=== PATIENT | female | born 2000 | race Asian ===

== ENCOUNTER → 2024-06-21 08:31 | Outpatient (CLI) | payer OTHER, SELFPAY ==
[2024-06-21 09:52] LABS: Hematocrit 34.6 % (36-46); Hemoglobin 11.7 g/dL (12.0-16.0)
[2024-06-21 10:03] LABS: GTT (PREG) 1 Hour PP 50gm Dose 115 mg/dL (76-139)
== END ==
PROVIDERS: PCP Nurse Practitioner Family; Referring Provider Student in an Organized Health Care Education/Training Program; Visit Provider Student in an Organized Health Care Education/Training Program
DX: Z34.00 Encounter for supervision of normal first pregnancy, unspecified trimester (principal); Z13.0 Encounter for screening for diseases of the blood and blood-forming organs and certain disorders involving the immune mechanism; Z13.1 Encounter for screening for diabetes mellitus
CPT/HCPCS: 36415; 82950; 85014; 85018; 86850; 86900; 86901

== ENCOUNTER → 2024-08-07 13:43 | Outpatient (CLI) | payer OTHER, SELFPAY ==
--- NOTE | 2024-08-07 13:45 | DI.US.S_ITS ---
PROCEDURE: US OB LIMITED INDICATIONS: SIZE LESS THAN DATES OUTSIDE/PRIOR DATING DATA: Last menstrual period (LMP): 12/20/2023. LMP-based estimated date of delivery (PAT): 09/25/2024. First dating scan (date and location): 01/30/2024. Estimated date of delivery (PAT) from first dating scan: Unknown. The calculations are made using the clinical PAT of 09/25/2024. TECHNIQUE: Real-time scanning was performed of the fetus, with image documentation and biometric measurements. COMPARISON: [facility], US, US OB >= 14 WEEKS FETUS, 06/25/2024, 15:01. FINDINGS: General: A single living intrauterine gestation is present. Presentation: Vertex. Placenta: Placental position is anterior , without previa. Amniotic fluid index: 16.3 cm, normal range is 5-24 cm. Single deepest vertical pocket is 5.7 cm. heart rate: 125 beats per minute. Maternal cervical canal: Not well seen cm long. biometrics: Biparietal diameter: 8.2 cm 33 weeks 0 days Head circumference: 28.4 cm 31 weeks 1 day Abdominal circumference: 23.7 cm 20 weeks 0 days Femur length: 5.5 cm 29 weeks 0 days Clinically estimated gestational age: 33 weeks 0 days Composite gestational age from present scan: 30 weeks 2 days Estimated weight and percentile: 1311 g less than 2nd percentile Other: Not applicable. IMPRESSION: Single live intrauterine with gestational age today of 30 weeks 2 days, compared to clinically estimated age of 33 weeks 0 days. It is also noted weight is less than 2nd percentile. Overall appearance is most concerning for intrauterine growth restriction this is decreased from the 26th percentile on prior exam. Clinical and ultrasound follow-up is recommended. We strive to produce accurate, complete, and clear reports of imaging services. To assist us in improving patient care, this report was composed using standard report templates and voice recognition software. Therefore, it may contain abnormal punctuation, insertions and/or omissions. Occasional wrong-word or sound-alike substitutions may occur. Though we review the report and make efforts to correct it, we do recommend that the report be read carefully in proper context to recognize any text inaccuracies. Dictated by: Francy Green M.D. on 08/07/2024 at 20:10 Approved by: Francy Green M.D. on 08/07/2024 at 20:14
== END ==
LOC: US 13:45
PROVIDERS: PCP Nurse Practitioner Family; Referring Provider Student in an Organized Health Care Education/Training Program; Visit Provider Student in an Organized Health Care Education/Training Program
DX: O26.843 Uterine size-date discrepancy, third trimester (principal); Z3A.30 30 weeks gestation of pregnancy
CPT/HCPCS: 76815; 76820

== ENCOUNTER → 2024-08-09 15:14 | Outpatient (CLI) | payer OTHER, SELFPAY ==
--- NOTE | 2024-08-09 15:16 | DI.US.S_ITS ---
PROCEDURE: US OB LIMITED INDICATIONS: growth restriction, UA dopplers BPP OUTSIDE/PRIOR DATING DATA: Last menstrual period (LMP): 12/20/2023. LMP-based estimated date of delivery (PAT): 09/25/2024. First dating scan (date and location): 01/30/2024. Estimated date of delivery (PAT) from first dating scan: Unknown. The calculations are made using the clinical PAT of 09/25/2024. TECHNIQUE: Real-time scanning was performed of the fetus for biophysical profile, with image documentation. Color and pulse Doppler interrogation was also performed of the umbilical artery near its insertion into the placenta. Endovaginal scanning: Not performed COMPARISON: [facility], OB LIMITED, 08/07/2024, 14:00. FINDINGS: General: A single living intrauterine gestation is present. Presentation: Vertex. Placenta: Placental position is anterior , without previa. Amniotic fluid index: 18.1 cm, normal range is 5-24 cm. Single deepest vertical pocket is 4.9 cm. heart rate: 145 beats per minute. Maternal cervical canal: 3.2 cm long. Normal lower limit is 2.5 cm. Clinically estimated gestational age: 33 weeks, 2 days Biophysical profile: Tone: 2 points. Movement: 2 points. Respiration: 2 points. Largest pocket of fluid: 2 points. Umbilical artery Doppler: 1.8, 1.8, 2.3 IMPRESSION: 1. Single live intrauterine consistent with 33 weeks and 2 days. 2. Normal biophysical profile and umbilical artery Dopplers. We strive to produce accurate, complete, and clear reports of imaging services. To assist us in improving patient care, this report was composed using standard report templates and voice recognition software. Therefore, it may contain abnormal punctuation, insertions and/or omissions. Occasional wrong-word or sound-alike substitutions may occur. Though we review the report and make efforts to correct it, we do recommend that the report be read carefully in proper context to recognize any text inaccuracies. Dictated by: Issa Aleman M.D. on 08/09/2024 at 17:00 Approved by: Issa Aleman M.D. on 08/09/2024 at 17:02
== END ==
PROVIDERS: PCP Nurse Practitioner Family; Referring Provider Student in an Organized Health Care Education/Training Program; Visit Provider Student in an Organized Health Care Education/Training Program
DX: O26.843 Uterine size-date discrepancy, third trimester (principal); Z3A.33 33 weeks gestation of pregnancy
CPT/HCPCS: 76815; 76819; 93975

== ENCOUNTER 2024-08-13 08:46 | Outpatient (CLI) | payer OTHER, SELFPAY ==
--- NOTE | 2024-08-13 09:26 | P.TNLD_ITS ---
Visit Information Visit Information Date of evaluation: 08/13/24 Primary OB Provider: Hortencia oBurgeois Reason for Evaluation: Yes non-stress test Vital Signs Vital Signs: reviewed in OBIX, within normal parameters PFSH Medical History (Updated 08/13/24 @ 09:27 by Hortencia Bourgeois DO) Acne Migraines Chronic headache Surgical History No pertinent past surgical history Family History (Updated 06/07/24 @ 19:55 by Lisa Peng) Father Diabetes mellitus Dementia History of heart disease Stroke Mother Hypertension Aunt Cervical cancer Aunt Lung cancer Smoker Social History marital status: unmarried,single number of children: 0 household members: none lives independently: Yes caregiver/support person: No housing: apartment pets and animals: No education level: high school occupational status: employed (active duty, cook) current occupational exposures/hazards: No special tootie needs: No travel history: recent (recent move from [facility]) seatbelt use: always water heater temp set < 120 deg: Yes working smoke detector in home: Yes fire extinguisher in home: No carbon monox detector in home: Yes firearms in home: No do you feel safe at home: Yes Smoking Status: Never smoker second hand exposure: No alcohol intake: former (binge drinking on weekends when not ) during the past year weight has: increased > 10 lbs well-balanced diet: about half the time daily servings fruits/ve-1 (1-2) caffeine: No (occasional coffee) Type(s) of exercise: none Objective Labs Labs: UA collected Evaluation Evaluation Baseline heart rate: 140 Variability: Moderate (11-25) monitor accelerations: Present Monitor Decelerations: Absent Contraction Frequency (minutes): 4 Uterine Contraction Intensity: Mild Category of Tracing: Reactive Diagnosis, Plan/Disposition Final Diagnosis (1) growth restriction antepartum: Status: Acute Plan/Disposition Plan: 24yo at 33+6wks with newly diagnosed FGR (EFW 2%ile), here for twice weekly NST. Reported some low back pain, with some contractions seen on the tocometer during her NST today. She was observed and given PO hydration, with no worsening of her symptoms. Cervical length 4 days ago was normal. UA collected today. Reactive NST today. -patient was given strict return precautions regarding symptoms of labor, as well as decreased movement -patient to follow-up later this week for 2nd NST and UA dopplers OB Disposition: home
[2024-08-13 09:47] LABS: Appearance Urine UA CLEAR; Bilirubin Urine UA NEGATIVE (NEGATIVE); Color Urine UA YELLOW; Glucose Urine UA NEGATIVE (Negative); Ketones Urine UA NEGATIVE (NEGATIVE); Leukocyte Esterase Urine UA 1+ (NEGATIVE); Nitrite Urine UA NEGATIVE (Negative); Occult Blood Urine UA NEGATIVE (Negative); Protein Urine UA NEGATIVE (Negative); Specific Gravity Urine UA 1.015 (1.000-1.035); Urobilinogen Urine UA 0.2 E.U./dL (0.2)
[2024-08-13 09:50] LABS: Urine Volume 10mL (spun)
[2024-08-13 09:55] LABS: Bacteria Urine None Seen; Culture Indicated Urine Specimen Cultured; RBC Urine None Seen (0-5/HPF); Squamous Epithelial Cell Urine 10-30 /HPF (0-5/HPF); WBC Urine 1-5/HPF (0-5/HPF)
== END 2024-08-13 10:15 | disposition home or self-care (01) ==
LOC: LABOR 09:53 → OB 12:26
PROVIDERS: PCP Nurse Practitioner Family; Referring Provider Student in an Organized Health Care Education/Training Program; Visit Provider Student in an Organized Health Care Education/Training Program
DX: O36.5930 Maternal care for other known or suspected poor fetal growth, third trimester, not applicable or unspecified (principal); Z3A.33 33 weeks gestation of pregnancy
CPT/HCPCS: 59025; 81001; 87086; G0378; G0379

== ENCOUNTER 2024-08-20 11:29 | Outpatient (CLI) | payer OTHER, SELFPAY ==
--- NOTE | 2024-08-20 12:07 | P.TNLD_ITS ---
Visit Information Visit Information Date of evaluation: 08/20/24 Primary OB Provider: Hortencia Bourgeois Reason for Evaluation: Yes non-stress test Vital Signs Vital Signs: reviewed in OBIX, within normal parameters PFSH Medical History (Updated 08/13/24 @ 09:27 by Hortencia Bourgeois DO) Acne Migraines Chronic headache Surgical History No pertinent past surgical history Family History (Updated 06/07/24 @ 19:55 by Lisa Peng) Father Diabetes mellitus Dementia History of heart disease Stroke Mother Hypertension Aunt Cervical cancer Aunt Lung cancer Smoker Social History marital status: unmarried,single number of children: 0 household members: none lives independently: Yes caregiver/support person: No housing: apartment pets and animals: No education level: high school occupational status: employed (active duty, cook) current occupational exposures/hazards: No special tootie needs: No travel history: recent (recent move from [facility]) seatbelt use: always water heater temp set < 120 deg: Yes working smoke detector in home: Yes fire extinguisher in home: No carbon monox detector in home: Yes firearms in home: No do you feel safe at home: Yes Smoking Status: Never smoker second hand exposure: No alcohol intake: former (binge drinking on weekends when not ) during the past year weight has: increased > 10 lbs well-balanced diet: about half the time daily servings fruits/ve-1 (1-2) caffeine: No (occasional coffee) Type(s) of exercise: none Evaluation Evaluation Baseline heart rate: 150 Variability: Moderate (11-25) monitor accelerations: Present Monitor Decelerations: Absent Category of Tracing: Reactive Diagnosis, Plan/Disposition Final Diagnosis (1) growth restriction antepartum: Status: Acute Plan/Disposition Plan: Follow-up for visit today, MFM appointment tomorrow. OB Disposition: home
== END 2024-08-20 12:19 | disposition home or self-care (01) ==
LOC: LABOR 12:04 → OB 12:27
PROVIDERS: PCP Nurse Practitioner Family; Referring Provider Student in an Organized Health Care Education/Training Program; Visit Provider Student in an Organized Health Care Education/Training Program
DX: O36.5930 Maternal care for other known or suspected poor fetal growth, third trimester, not applicable or unspecified (principal); Z3A.34 34 weeks gestation of pregnancy
CPT/HCPCS: 59025; G0378; G0379

== ENCOUNTER 2024-08-24 13:33 | Outpatient (CLI) | payer OTHER, SELFPAY ==
--- NOTE | 2024-08-24 14:10 | PM.OBTRLD ---
Visit Information Visit Information Date of evaluation: 08/24/24 On-call OB Provider: Hortencia Bourgeois Reason for Evaluation: Yes non-stress test Vital Signs Vital Signs: Reviewed in obix, within normal parameters PFSH Medical History (Updated 08/24/24 @ 17:31 by Hortencia Bourgeois DO) Acne Migraines Chronic headache Surgical History No pertinent past surgical history Family History (Updated 06/07/24 @ 19:55 by Lisa Peng) Father Diabetes mellitus Dementia History of heart disease Stroke Mother Hypertension Aunt Cervical cancer Aunt Lung cancer Smoker Social History marital status: unmarried,single number of children: 0 household members: none lives independently: Yes caregiver/support person: No housing: apartment pets and animals: No education level: high school occupational status: employed (active duty, cook) current occupational exposures/hazards: No special tootie needs: No travel history: recent (recent move from [facility]) seatbelt use: always water heater temp set < 120 deg: Yes working smoke detector in home: Yes fire extinguisher in home: No carbon monox detector in home: Yes firearms in home: No do you feel safe at home: Yes Smoking Status: Never smoker second hand exposure: No alcohol intake: former (binge drinking on weekends when not ) during the past year weight has: increased > 10 lbs well-balanced diet: about half the time daily servings fruits/ve-1 (1-2) caffeine: No (occasional coffee) Type(s) of exercise: none Evaluation Evaluation Baseline heart rate: 140 Variability: Moderate (11-25) monitor accelerations: Present Monitor Decelerations: Absent Category of Tracing: Reactive Diagnosis, Plan/Disposition Final Diagnosis (1) growth restriction antepartum: Status: Acute (2) 35 weeks gestation of : Status: Acute Plan/Disposition Plan: Continue twice weekly testing with UA Dopplers with MFM. OB Disposition: home
[2024-08-24 16:43] LABS: Strep Grp B PCR NEG for Grp B Strep
== END 2024-08-24 14:16 | disposition home or self-care (01) ==
LOC: OB 14:40
PROVIDERS: PCP Nurse Practitioner Family; Referring Provider Student in an Organized Health Care Education/Training Program; Visit Provider Student in an Organized Health Care Education/Training Program
DX: O36.5930 Maternal care for other known or suspected poor fetal growth, third trimester, not applicable or unspecified (principal); Z3A.35 35 weeks gestation of pregnancy
CPT/HCPCS: 59025; 87081; 87653; G0378; G0379

== ENCOUNTER 2024-08-27 10:21 | Outpatient (CLI) | payer OTHER, SELFPAY ==
--- NOTE | 2024-08-27 12:14 | P.TNLD_ITS ---
Visit Information Visit Information Date of evaluation: 08/27/24 Primary OB Provider: Hortencia Bourgeois Reason for Evaluation: Yes non-stress test PFSH Medical History (Updated 08/24/24 @ 17:31 by Hortencia Bourgeois DO) Acne Migraines Chronic headache Surgical History No pertinent past surgical history Family History (Updated 06/07/24 @ 19:55 by Lisa Peng) Father Diabetes mellitus Dementia History of heart disease Stroke Mother Hypertension Aunt Cervical cancer Aunt Lung cancer Smoker Social History marital status: unmarried,single number of children: 0 household members: none lives independently: Yes caregiver/support person: No housing: apartment pets and animals: No education level: high school occupational status: employed (active duty, cook) current occupational exposures/hazards: No special tootie needs: No travel history: recent (recent move from [facility]) seatbelt use: always water heater temp set < 120 deg: Yes working smoke detector in home: Yes fire extinguisher in home: No carbon monox detector in home: Yes firearms in home: No do you feel safe at home: Yes Smoking Status: Never smoker second hand exposure: No alcohol intake: former (binge drinking on weekends when not ) during the past year weight has: increased > 10 lbs well-balanced diet: about half the time daily servings fruits/ve-1 (1-2) caffeine: No (occasional coffee) Type(s) of exercise: none Evaluation Evaluation Baseline heart rate: 140 Variability: Moderate (11-25) monitor accelerations: Present Monitor Decelerations: Absent Category of Tracing: Reactive Diagnosis, Plan/Disposition Final Diagnosis (1) growth restriction antepartum: Status: Acute (2) 35 weeks gestation of : Status: Acute Plan/Disposition Plan: Follow up with MFM tomorrow for Doppler studies. Follow up later this week for 2nd NST. -plan for induction next week at 37+ 0 weeks OB Disposition: home
== END 2024-08-27 11:00 | disposition home or self-care (01) ==
LOC: OB 14:43
PROVIDERS: PCP Nurse Practitioner Family; Referring Provider Student in an Organized Health Care Education/Training Program; Visit Provider Student in an Organized Health Care Education/Training Program
DX: O36.5930 Maternal care for other known or suspected poor fetal growth, third trimester, not applicable or unspecified (principal); Z3A.35 35 weeks gestation of pregnancy
CPT/HCPCS: 59025; G0378; G0379

== ENCOUNTER 2024-08-31 13:46 | Outpatient (CLI) | payer OTHER, SELFPAY ==
--- NOTE | 2024-08-31 14:22 | PM.OBTRLD ---
Visit Information Visit Information Date of evaluation: 08/31/24 Primary OB Provider: Hortencia Bourgeois Reason for Evaluation: Yes non-stress test Vital Signs Vital Signs: reviewed in OBIX, within normal parameters PFSH Medical History (Updated 08/24/24 @ 17:31 by Hortencia Bourgeois DO) Acne Migraines Chronic headache Surgical History No pertinent past surgical history Family History (Updated 06/07/24 @ 19:55 by Lisa Peng) Father Diabetes mellitus Dementia History of heart disease Stroke Mother Hypertension Aunt Cervical cancer Aunt Lung cancer Smoker Social History marital status: unmarried,single number of children: 0 household members: none lives independently: Yes caregiver/support person: No housing: apartment pets and animals: No education level: high school occupational status: employed (active duty, cook) current occupational exposures/hazards: No special tootie needs: No travel history: recent (recent move from [facility]) seatbelt use: always water heater temp set < 120 deg: Yes working smoke detector in home: Yes fire extinguisher in home: No carbon monox detector in home: Yes firearms in home: No do you feel safe at home: Yes Smoking Status: Never smoker second hand exposure: No alcohol intake: former (binge drinking on weekends when not ) during the past year weight has: increased > 10 lbs well-balanced diet: about half the time daily servings fruits/ve-1 (1-2) caffeine: No (occasional coffee) Type(s) of exercise: none Evaluation Evaluation Baseline heart rate: 140 Variability: Moderate (11-25) monitor accelerations: Present Monitor Decelerations: Absent Category of Tracing: Reactive Diagnosis, Plan/Disposition Final Diagnosis (1) growth restriction antepartum: Status: Acute Plan/Disposition OB Disposition: home
== END 2024-08-31 14:25 | disposition home or self-care (01) ==
LOC: LABOR 13:57 → OB 15:01
PROVIDERS: PCP Nurse Practitioner Family; Referring Provider Student in an Organized Health Care Education/Training Program; Visit Provider Student in an Organized Health Care Education/Training Program
DX: O36.5930 Maternal care for other known or suspected poor fetal growth, third trimester, not applicable or unspecified (principal); Z3A.36 36 weeks gestation of pregnancy
CPT/HCPCS: 59025; G0378; G0379

== ENCOUNTER 2024-09-03 19:21 | Inpatient (IN) | payer OTHER, SELFPAY ==
[2024-09-03 20:04] LABS: Add Manual Diff / Slide Review NO; Basophils Absolute Auto 100 /uL (0-100); Basophils Percent Auto 0.8 % (0-2); Eosinophils Absolute Auto 200 /uL (0-450); Eosinophils Percent Auto 1.5 % (2-4); Hematocrit 38.3 % (36-46); Hemoglobin 13.1 g/dL (12.0-16.0); Lymphocytes Absolute Auto 1800 /uL (1100-4500); Mean Corpuscular HGB Conc 34.1 % (30-36); Mean Corpuscular Hemoglobin 32.8 PG (26-34); Mean Corpuscular Volume 96.1 fL (80-100); Monocytes Absolute Auto 800 /uL (0-900); Monocytes Percent Auto 7.7 % (3-14); Neutrophils Absolute Auto 7700 /uL (1500-7000); Platelet Count 252 X10^3/uL (150-400); Red Blood Cell Count 3.99 X10^6/uL (4.0-5.2); Red Cell Distribution Width 13.3 % (11.6-14.8); White Blood Cell Count 10.6 X10^3/uL (4.5-11.0)
[2024-09-03] MEDS: DINOPROSTONE VAG (CERVIDIL) 10 MG VAG (20:53)
--- NOTE | 2024-09-04 07:45 | PM.OBHP.IH.1 ---
OB HPI Date/Time Date of admission: 09/03/24 Date Patient Seen: 09/04/24 Time Patient Seen: 07:30 History of Present Condition Chief complaint: Induction PAT Calculator Estimated Delivery Date Method Current WG Current Estimate 09/25/24 LMP (Certain) 37w 0d Other Estimates 09/22/24 Ultrasound #1 37w 3d care: good care Dating criteria OB: LMP confirmed by 1st trimester US Ultrasounds: normal mid trimester US Obstetrical complications: growth restriction Narrative: Ultrasound Ultrasound Details:: 04/30/24 18w6d anatomy grossly normal excepting echogenic L intraventricular focus; EFW 243g, 25.7%ile; MVP 4.6cm; placenta anterior w/ central cord insertion, 3v cord. FHR 149 MFM US 08/16/24: EFW 1%ile (AC, [place], HL all <1%ile), normal UA dopplers, vertex presentation Specific Issues/Plans G1 [x] cfDNA- low risk XX; [x] CF/SMA- neg FGR (2nd %ile) at 33wks: [x ] MFM referral for confirmation; [ x] UA dopplers weekly (at [facility]);? 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 Indications Indication for induction OB: intra-uterine growth restriction Preadmission Labs Last OB Lab Results: Blood Type AB Positive 09/03/24 19:46 Antibody Screen Negative 09/03/24 19:46 Hct 38.3 % (36-46) 09/03/24 19:46 Hgb 13.1 g/dL (12.0-16.0) 09/03/24 19:46 Glucose 1 Hr 50 gm 115 mg/dL (76-139) 06/21/24 09:40 Group B Strep (PCR) Neg for grp b strep 08/24/24 13:56 Glucose Tolerance Testin hr (negative) -: Chlamydia screen: negative, Gonorrhea screen: negative and Urine: negative -: PAP smear: Normal Genetic Screens: Cell-free DNA: Normal External Labs -: Urine: negative Evaluation Evaluation Baseline heart rate: 140 Variability: Moderate (11-25) monitor accelerations: Present Monitor Decelerations: Absent Status: Category l Dilation (cm): 1 Effacement (%): 50 station: -3 Position of cervix: mid Consistency: soft PFSH Medical History (Updated 08/24/24 @ 17:31 by Hortencia Bourgeois DO) Acne Migraines Chronic headache Surgical History No pertinent past surgical history Family History (Updated 06/07/24 @ 19:55 by Lisa Peng) Father Diabetes mellitus Dementia History of heart disease Stroke Mother Hypertension Aunt Cervical cancer Aunt Lung cancer Smoker Social History marital status: unmarried,single number of children: 0 household members: none lives independently: Yes caregiver/support person: No housing: apartment pets and animals: No education level: high school occupational status: employed (active duty, cook) current occupational exposures/hazards: No special tootie needs: No travel history: recent (recent move from [facility]) seatbelt use: always water heater temp set < 120 deg: Yes working smoke detector in home: Yes fire extinguisher in home: No carbon monox detector in home: Yes firearms in home: No do you feel safe at home: Yes Smoking Status: Former smoker second hand exposure: No alcohol intake: former (binge drinking on weekends when not ) during the past year weight has: increased > 10 lbs well-balanced diet: about half the time daily servings fruits/ve-1 (1-2) caffeine: No (occasional coffee) Type(s) of exercise: none Meds Home Medications and Allergies Home Medications Medication Instructions Recorded Confirmed Type breast pump #1 ea 07/13/24 08/27/24 Rx vit no.95-ferrous 1 tab PO DAILY #90 tabs 07/23/24 08/27/24 Rx fumarate 28 mg-folic acid 800 mcg tablet Allergies Allergy/AdvReac Type Severity Reaction Status Date / Time No Known Drug Allergies Allergy Unverified 08/27/24 10:07 Review of Systems Review of Systems ROS: Yes All systems reviewed with the patient and are negative except as otherwise documented OB Exam Vital signs Blood Pressure: 122/73 Pulse Rate: 82 Respiratory Rate: 16 Temperature: 97.2 F HENMT Head: normal to inspection and normocephalic Eyes General: appearance normal, both eyes and all related structures Resp Effort & Inspection: normal respiratory effort and able to speak in complete sentences Extremities Lower extremity: Yes normal to inspection GI Inspection: normal to inspection Other: gravid, nontender, nondistended Objective Labs 09/03/24 19:46 Labs: Laboratory Results - last 24 hr 09/03/24 19:46 WBC 10.6 RBC 3.99 L Hgb 13.1 Hct 38.3 MCV 96.1 MCH 32.8 MCHC 34.1 RDW 13.3 Plt Count 252 Neut % (Auto) 73.0 Lymph % (Auto) 17.0 L [place] % (Auto) 7.7 Eos % (Auto) 1.5 L Baso % (Auto) 0.8 Neut # (Auto) 7700 H Lymph # (Auto) 1800 [place] # (Auto) 800 Eos # (Auto) 200 Baso # (Auto) 100 Blood Type AB Positive Antibody Screen Negative Assessment and Plan Assessment and Plan Assessment and Plan narrative: 24yo at 37+0wks admitted for induction of labor due to growth restriction. -CBC, T&S on admission -continuous EFM -epidural PRN -GBS neg, ppx not indicated -PPH risk low -VTE risk low, SCDs with epidural -anticipate L&D Counseling: Common procedures and interventions related to the management of were explained to the patient, including assistance at vaginal delivery with episiotomy, vacuum, or forceps, use of medications to stop premature labor or induce labor, and assessment including auscultation (listening to the heart), use of electronic monitoring (external and / or internal), and use of scalp electrode and/or intrauterine pressure catheter.? It was also explained that approximately 20-30% of mothers have a need for delivery during their labor course. It was explained to the patient that , labor and delivery are ordinarily normal physiological events and can be expected to provide a healthy outcome for mother and baby in the majority of cases. However, there are complications that may arise during , labor, and delivery, such as: hemorrhage requiring administration of blood and/or blood products, surgical intervention, possibly even hysterectomy for life-saving purposes; possibility of infection requiring antibiotics, prolonged hospital stay, and rarely surgical intervention; possibility of blood clots;? possibility of retained products of conception requiring surgical intervention;? possibility of serious tears or injury to the vagina, cervix, perineum, or rectum;? possibility of injury to abdominal structures if delivery is required;? and rarely maternal or may occur. Time-Based Coding :: [30min] spent with patient and on the chart (including review of chart, obtaining history, exam, reviewing outside data, placing orders, documenting exam and treatment plan, and counseling patient) on [09/04/24].
[2024-09-04 07:49] VITALS: BP 122/73; PULSE 82; RESP 16; TEMP 36.2
[2024-09-04] MEDS: miSOPROStoL 25 MCG TABLET PO ×2 (10:00→14:04)
--- NOTE | 2024-09-04 12:00 | PM.OBPNLAB ---
Date/Time Date Patient Seen: 09/04/24 Time Patient Seen: 12:00 Pain Control Pain control: tolerating well Pelvic Exam Dilation (cm): 1 Effacement (%): 50 station: -3 Amniotic membrane status: Intact Contractions Contraction pattern: Irregular Contraction intensity: Mild Status status: Category l Heart Rate Baseline: 145 Monitor Accelerations: Present Monitor Decelerations: Absent Monitor Variability: Moderate Assessment and Plan Assessment: induction ongoing Comments: 24yo at 37+0wks undergoing IOL for FGR. S/p cytotec 25mcg PO at 10am. Pastor bulb placed now with 60cc saline. -reassess this afternoon for continued cytotec vs. pitocin
[2024-09-04] MEDS: polyethylene glycoL 3350 17 GM POWD.PACK PO (12:16)
[2024-09-04] MEDS: LACTATED RINGERS 1,000 ML 100 ML IV ×2 (18:26→22:35)
[2024-09-04] MEDS: OXYTOCIN PREMIX 30 UNIT/500 ML PLAST..BAG IV (18:26)
--- NOTE | 2024-09-05 02:03 | PM.AN.REGBLK ---
Regional Block Pre-procedure PMH/ROS narrative: active labor PSH/Anesthesia history narrative: no pmh ASA Class: II Labs: Hct 38.3 % (36-46) 09/03/24 19:46 Plt Count 252 X10^3/uL (150-400) 09/03/24 19:46 Medications: Current Medications Generic Name Dose Route Start Last Admin Trade Name Freq PRN Reason Stop Dose Admin Calcium Carbonate 1,000 mg 09/03/24 19:23 Calcium Carbonate 500 Mg Tab PO Q2HR PRN Dyspepsia Carboprost Tromethamine 250 mcg 09/03/24 19:23 Carboprost 250 Mcg/Ml Ampul IM Q90M PRN Bleeding Oxytocin/Lactated Ringer's 30 unit in 500 mls @ 200 mls/hr 09/03/24 19:23 Oxytocin Premix IV CONT PRN Bleeding Protocol Tranexamic Acid 1,000 mg/ 100 mls @ 600 mls/hr 09/03/24 19:23 Sodium Chloride IV NOW PRN Bleeding Oxytocin/Lactated Ringer's 30 unit in 500 mls @ 2 mls/hr 09/04/24 18:15 09/04/24 18:26 Oxytocin Premix IV 2 milliunit/min TITRATE JUANITA 2 mls/hr Administration Protocol 2 MILLIUNIT/MIN Lidocaine HCl 20 ml 09/03/24 19:23 Lidocaine 1% 20 Ml INJ INTRA-OP PRN Post Delivery Methylergonovine Maleate 0.2 mg 09/03/24 19:23 Methylergonovine 0.2 Mg/Ml Vial IM NOW PRN Bleeding Methylergonovine Maleate 0.2 mg 09/03/24 19:23 Methylergonovine 0.2 Mg Tablet PO Q6HR PRN Heavy Bleeding Misoprostol 400 mcg 09/03/24 19:23 Misoprostol 200 Mcg Tablet SL NOW PRN Bleeding Misoprostol 800 mcg 09/03/24 19:23 Misoprostol 200 Mcg Tablet WI NOW PRN Bleeding Misoprostol 25 mcg 09/04/24 14:00 09/04/24 14:04 Misoprostol 25 Mcg Tablet PO 25 mcg Q4H JUANITA Administration Naloxone HCl 0.2 mg 09/03/24 19:23 Naloxone 0.4 Mg/Ml Vial IV Q2MIN PRN Opiate Reversal Ondansetron HCl 4 mg 09/03/24 19:23 Ondansetron 4 Mg/2 Ml Inj IV Q4HR PRN Nausea And Vomiting Oxytocin 10 unit 09/03/24 19:23 Oxytocin 10 Unit/Ml Vial IM NOW PRN Bleeding Allergies: Allergies Allergy/AdvReac Type Severity Reaction Status Date / Time No Known Drug Allergies Allergy Verified 09/04/24 08:32 Procedure Insertion date: 09/05/24 Insertion time: 01:49 Prep/Local: 1% lidocaine (chloraprep) Interspace: l3 l4 Needle: 18 gauge Tamratead Loss of resistance with: saline REBEKAH at (cm): 6 Catheter placed at SKIN (cm): 12 Sensory level: t10 Initial Medications TEST DOSE time: 01:50 TEST DOSE: 1.5% lidocaine with epinephrine 1:200k (mL): 3 BOLUS DOSE time: 01:55 BOLUS DOSE (mL): 5 BOLUS DOSE med: other (bupivacaine 0.0625% with fent 2 mcg/mL) Infusion INFUSION: 0.0625% bupivacaine and with fentanyl 2 mcg/mL Initial rate (mL/hr): 10 Post-procedure Anesthesia date START: 09/05/24 Anesthesia time START: 01:32
[2024-09-05 04:58] LABS: Add Manual Diff / Slide Review NO; Basophils Absolute Auto 100 /uL (0-100); Basophils Percent Auto 0.3 % (0-2); Eosinophils Absolute Auto 0 /uL (0-450); Hematocrit 32.8 % (36-46); Hemoglobin 11.3 g/dL (12.0-16.0); Lymphocytes Absolute Auto 1200 /uL (1100-4500); Lymphocytes Percent Auto 5.6 % (25-40); Mean Corpuscular HGB Conc 34.4 % (30-36); Mean Corpuscular Hemoglobin 32.9 PG (26-34); Mean Corpuscular Volume 95.5 fL (80-100); Monocytes Absolute Auto 900 /uL (0-900); Monocytes Percent Auto 4.1 % (3-14); Neutrophils Absolute Auto 19300 /uL (1500-7000); Platelet Count 203 X10^3/uL (150-400); Red Blood Cell Count 3.44 X10^6/uL (4.0-5.2); Red Cell Distribution Width 13.2 % (11.6-14.8); White Blood Cell Count 21.5 X10^3/uL (4.5-11.0)
--- NOTE | 2024-09-05 05:06 | SUR.OPER ---
Lithotomy on padded OR bed, head on pillow, arms secured on padded arm boards at <90 degrees abduction. Legs secured in padded yellow fins stirrups.
[2024-09-05 05:53] LABS: INR 1.9 (0.9-1.3); Prothrombin Time 21.2 SECONDS (9.4-12.5)
[2024-09-05 05:56] LABS: PTT Partial Thromboplastin Tim 65 SECONDS (25.1-36.5)
[2024-09-05 06:13] VITALS: BP 105/64; PULSE 100; RESP 16; TEMP 36.4; O2SAT 99
--- NOTE | 2024-09-05 06:14 | PM.OBPRVD ---
Labor & Delivery Delivery date: 09/05/24 Delivery Time: 02:49 Cervical ripening method: other (cervidil, cytotec, perales bulb) Induction method: per pitocin protocol Delivery monitor: external FHT and external uterine Route of delivery: L&D Laceration Description: Perineal - 2nd Degree, Vaginal - 2nd Degree and Labial Delivery repair: vicryl Quantitative Blood Loss: 1,060 Anesthesia Type: Epidural Complications: hemorrhage from obstetrical lacerations Narrative: The patient progressed to C/C/+2 with pitocin augmentation and epidural anesthesia. After approximately 30min of maternal pushing efforts, the delivered in OA position and restituted LOT. The anterior shoulder delivered with gentle downward pressure. The posterior shoulder and rest of body delivered with ease. The cord was doubly clamped and cut after a 30sec delay with the placed on maternal abdomen. The placenta delivered spontaneously and was intact with a 3-vessel cord. The fundus was noted to be firm with bimanual massage and pitocin. She also received 1 dose of methergine and 1 dose of TXA. Inspection of the cervix, vagina, and perineum was notable for the above lacerations. Repair was performed using 3-0 Vicryl in a running fashion, however throughout the repair there was brisk bleeding from the lacerations, making visualization in the delivery room difficult. Thus after the QBL was 1000cc and the lacerations were still bleeding, decision was made to go to the OR for better visualization and repair. See separate operative report. [place] Baby 1: gender: Female Presentation: vertex Placenta delivery description: Spontaneous Cord Vessel Description: 3 Vessels score (1 min): 9 score (5 min): 9 weight: 4 lb 4 oz Plan for aftercare: Routine care
[2024-09-05 06:18] VITALS: BP 103/64; PULSE 104; RESP 16; O2SAT 99
--- NOTE | 2024-09-05 06:19 | PM.OP.1 ---
Operative Date/Time/Diagnoses Date of procedure: 09/05/24 Time of procedure: 04:00 Pre-op diagnosis: Obstetrical lacerations hemorrhage Post-op diagnosis: same Procedure & Clinicians Procedure: Obstetrical laceration repair Same procedure as scheduled: Yes Indications: 24yo [id number] delivered via vaginal delivery, with 2nd degree perineal and vaginal sulcal lacerations that were briskly bleeding in the delivery room. Due to inability to obtain adequate visualization, decision was made to proceed to the OR for repair. Surgeon: Hortencia Bourgeois Group Supervisor Yard: Karime Peralta Anesthesia Type: Epidural Operative Notes Findings: Brisk bleeding from bilateral sulcal vaginal lacerations. Normal cervix with no lacerations noted. Specimen(s): none sent Applied: catheter Estimated Blood Loss (mL): 800 Blood products transfused: packed red blood cells (1 unit) Procedure in detail: The patient was taken to the operating room where epidural was adequate. The pt was then placed in the low lithotomy position using gel-padded Bar Stirrups. SCDs were placed bilaterally for VTE prophylaxis. The pt was then prepped and draped in the sterile fashion. A perales catheter had been placed in the delivery room. Repair of the obstetrical lacerations was then performed with 3-0 vicryl running sutures, with several figure of eight sutures as well. All of the vaginal tissues were noted to be friable and denuded, making hemostasis difficult to achieve. She received another dose of 1g TXA in the OR, as well as 1 unit of packed RBCs once the total QBL from delivery and in the OR became 1800cc. Visualization of the source of the bleeding was difficult throughout the case. At the end of the repair, vaginal packing was placed. All instruments were then removed from the patient?s vagina other than the vaginal packing. At the completion of the case the sponge and needle counts were correct x 2. The patient tolerated the procedure well and was taken to the PACU in stable condition. Complications: none Post-operative Condition: stable Disposition: PACU Plan for aftercare: Plan for routine care with close monitoring of her vaginal bleeding.
[2024-09-05 06:23] VITALS: BP 102/71; PULSE 106; RESP 16; O2SAT 100
[2024-09-05 06:28] VITALS: BP 101/68; PULSE 107; RESP 18; TEMP 36.5; O2SAT 99
[2024-09-05 06:33] VITALS: BP 104/66; PULSE 101; RESP 16; O2SAT 99
[2024-09-05] MEDS: LANOLIN OINT 7 GM 1 APPLIC TOP (07:55)
[2024-09-05] MEDS: DERMOPLAST SPRAY 20% 60 ML 1 SPRAY TOP ×2 (07:56→20:04)
[2024-09-05] MEDS: WITCH HAZEL/GLYCERIN PADS 1 EACH TOP (07:56)
[2024-09-05] MEDS: ACETAMINOPHEN 325 MG TABLET 650 MG PO ×3 (07:57→20:06)
[2024-09-05] MEDS: IBUPROFEN 600 MG TABLET PO ×3 (07:58→20:05)
[2024-09-05 12:04] LABS: Add Manual Diff / Slide Review NO; Basophils Absolute Auto 100 /uL (0-100); Basophils Percent Auto 0.3 % (0-2); Eosinophils Absolute Auto 0 /uL (0-450); Eosinophils Percent Auto 0.2 % (2-4); Hematocrit 27.4 % (36-46); Hemoglobin 9.3 g/dL (12.0-16.0); Lymphocytes Absolute Auto 1500 /uL (1100-4500); Lymphocytes Percent Auto 8.2 % (25-40); Mean Corpuscular Hemoglobin 31.9 PG (26-34); Mean Corpuscular Volume 93.9 fL (80-100); Monocytes Absolute Auto 1200 /uL (0-900); Monocytes Percent Auto 6.9 % (3-14); Neutrophils Absolute Auto 14900 /uL (1500-7000); Neutrophils Percent Auto 84.4 % (50-75); Platelet Count 178 X10^3/uL (150-400); Red Blood Cell Count 2.92 X10^6/uL (4.0-5.2); Red Cell Distribution Width 13.7 % (11.6-14.8); White Blood Cell Count 17.7 X10^3/uL (4.5-11.0)
[2024-09-05] MEDS: OXYCODONE IR 5 MG TABLET PO (14:29)
--- NOTE | 2024-09-05 14:55 | P.PNOB_ITS ---
Subjective - OB Subjective Patient comments: other (moderate pain, controlled with current analgesia) baby status: doing well feeding status: breast and bottle feeding Narrative: pt resting in bed, eating lunch states pain is moderate, mild anxiety with anticipate of vaginal packing removal Date Patient Seen: 09/05/24 Time Patient Seen: 13:20 Interval history: PPD0 s/p of SGA LBFI, delivery c/b complex obstetrical laceration with associated stage 3 PPH necessitating transfusion, repair under anesthesia Exam Vital Signs (past 8 hours): Oxygen Delivery Method Room Air Oxygen Flow Rate 99 non-sustained maternal tachycardia afebrile Const General: cooperative and comfortable Nutritional Appearance: average body habitus Orientation: alert, awake and oriented x3 Limitations: mental status not altered Resp Effort & Inspection: normal respiratory effort and able to speak in complete sentences Cardio Rate: tachycardic Pulses: normal peripheral pulses GI Inspection: normal to inspection Palpation: soft Other: fundus firm << umb Other: generalized edema of bilateral labia, perineum vaginal packing removed, ~90% saturated small volume trickle noted following removal, dark blood consistent with lochia peripad <10% saturated Skin General: no rashes or lesions noted Neuro General: patient alert, patient awake and patient oriented x3 Extrem General: normal to inspection Psych Mental Status: mental status grossly normal Judgment: judgment good Objective Labs 09/06/24 09:38 Labs: Laboratory Results - last 24 hr 09/03/24 09/05/24 09/05/24 19:46 04:40 05:37 WBC 21.5 H D RBC 3.44 L Hgb 11.3 L Hct 32.8 L MCV 95.5 MCH 32.9 MCHC 34.4 RDW 13.2 Plt Count 203 Neut % (Auto) 90.0 H Lymph % (Auto) 5.6 L [place] % (Auto) 4.1 Eos % (Auto) 0.0 L Baso % (Auto) 0.3 Neut # (Auto) 77889 H Lymph # (Auto) 1200 [place] # (Auto) 900 Eos # (Auto) 0 Baso # (Auto) 100 PT 21.2 H INR 1.9 H APTT 65 H Blood Type AB Positive Antibody Screen Negative Crossmatch See Detail 09/05/24 11:07 WBC 17.7 H RBC 2.92 L Hgb 9.3 L Hct 27.4 L MCV 93.9 MCH 31.9 MCHC 34.0 RDW 13.7 Plt Count 178 Neut % (Auto) 84.4 H Lymph % (Auto) 8.2 L [place] % (Auto) 6.9 Eos % (Auto) 0.2 L Baso % (Auto) 0.3 Neut # (Auto) 43577 H Lymph # (Auto) 1500 [place] # (Auto) 1200 H Eos # (Auto) 0 Baso # (Auto) 100 PT INR APTT Blood Type Antibody Screen Crossmatch Assessment & Plan Plan day: 0 plan OB: routine care Comments: 4h post-procedure/transfusion h/h consistent with stage 3 PPH bleeding minimal at this time, strict pad counts with low threshold to replace packing in pentecostal of recurrent heavy bleeding keep perales catheter until 1800 for strict I/O, dc at that time and notify provider if pt has any difficulty with spontaneous void routine care Time-Based Coding :: [TOTAL MINUTES] spent with patient and on the chart (including review of chart, obtaining history, exam, reviewing outside data, placing orders, documenting exam and treatment plan, and counseling patient) on [DATE].
[2024-09-06] MEDS: ACETAMINOPHEN 325 MG TABLET 650 MG PO ×4 (02:02→21:00)
[2024-09-06] MEDS: IBUPROFEN 600 MG TABLET PO ×4 (02:02→20:59)
[2024-09-06] MEDS: OXYCODONE IR 5 MG TABLET PO ×4 (02:05→22:50)
--- NOTE | 2024-09-06 09:35 | PM.OBPN.1 ---
Subjective - OB Subjective Patient comments: pain well controlled [place] feeding status: pumping and bottle feeding Date Patient Seen: 09/06/24 Time Patient Seen: 09:35 Interval history: 24yo [id number] s/p c/b PPH due to blood loss from obstetrical lacerations, now day #1. She reports pain is tolerable with oral pain meds. Ambulating without dizziness/lightheadedness. Vaginal bleeding is similar to a period. Exam Vital Signs (past 8 hours): Oxygen Delivery Method Room Air Oxygen Flow Rate 99 vitals reviewed in OBIX, within normal parameters Const General: healthy appearing, comfortable and No acute distress Resp Effort & Inspection: normal respiratory effort and able to speak in complete sentences OB/External & Speculum: deferred Skin General: no rashes or lesions noted Neuro Cognition: normal cognition Speech: speech normal Psych Mood: congruent mood Affect: normal affect Objective Labs 09/05/24 11:07 Labs: Laboratory Results - last 24 hr 09/05/24 11:07 WBC 17.7 H RBC 2.92 L Hgb 9.3 L Hct 27.4 L MCV 93.9 MCH 31.9 MCHC 34.0 RDW 13.7 Plt Count 178 Neut % (Auto) 84.4 H Lymph % (Auto) 8.2 L [place] % (Auto) 6.9 Eos % (Auto) 0.2 L Baso % (Auto) 0.3 Neut # (Auto) 48125 H Lymph # (Auto) 1500 [place] # (Auto) 1200 H Eos # (Auto) 0 Baso # (Auto) 100 Assessment & Plan Assessment and Plan (1) Delivery outcome of liveborn : Status: Acute (2) Hemorrhage after vaginal delivery: Status: Acute (3) growth restriction antepartum: Status: Acute (4) 37 weeks gestation of : Status: Acute Plan day: 1 plan OB: routine care Comments: 24yo [id number] s/p c/b PPH, doing well on day #1. -repeat CBC ordered for this morning -given baby's size, will be staying one more night, thus will plan for discharge for mom tomorrow as well Time-Based Coding :: [30min] spent with patient and on the chart (including review of chart, obtaining history, exam, reviewing outside data, placing orders, documenting exam and treatment plan, and counseling patient) on [09/06/24].
[2024-09-06 09:48] LABS: Add Manual Diff / Slide Review NO; Basophils Absolute Auto 100 /uL (0-100); Basophils Percent Auto 0.3 % (0-2); Eosinophils Absolute Auto 300 /uL (0-450); Eosinophils Percent Auto 1.2 % (2-4); Hemoglobin 8.8 g/dL (12.0-16.0); Lymphocytes Absolute Auto 2000 /uL (1100-4500); Lymphocytes Percent Auto 8.7 % (25-40); Mean Corpuscular HGB Conc 33.7 % (30-36); Mean Corpuscular Hemoglobin 32.1 PG (26-34); Mean Corpuscular Volume 95.4 fL (80-100); Monocytes Absolute Auto 700 /uL (0-900); Monocytes Percent Auto 3.2 % (3-14); Neutrophils Absolute Auto 20200 /uL (1500-7000); Neutrophils Percent Auto 86.6 % (50-75); Platelet Count 198 X10^3/uL (150-400); Red Blood Cell Count 2.73 X10^6/uL (4.0-5.2); White Blood Cell Count 23.3 X10^3/uL (4.5-11.0)
[2024-09-06] MEDS: WITCH HAZEL/GLYCERIN PADS 1 EACH TOP (14:29)
[2024-09-06] MEDS: DOCUSATE 100 MG CAPSULE PO (21:00)
[2024-09-07] MEDS: IBUPROFEN 600 MG TABLET PO ×2 (03:57→11:36)
[2024-09-07] MEDS: ACETAMINOPHEN 325 MG TABLET 650 MG PO ×2 (03:58→11:36)
--- NOTE | 2024-09-07 07:53 | P.DS_ITS ---
Discharge Providers Provider Date of admission: 09/03/24 19:21 Discharge Date: 09/07/24 Primary care physician: BANDAR Garcia Consults: 09/06/24 02:58 Consult to Pulmonary Physical Therapist Routine Comment: Discharge provider: Karime Peralta MD Summary Hospital Course Date Patient Seen: 09/07/24 Time Patient Seen: 07:53 Diagnoses: encounter for vaginal delivery medically indicated IOL at term, IUGR complex obstetrical laceration with associated hemorrhage necessitating transfusion acute blood loss anemia, asymptomatic Hospital Course: 24yo G1 admitted to facility at 37w0d for medically indicated IOL in setting of known IUGR, EFW <1st% without UA doppler abnormality. Pt underwent cervical ripening with overnight cervidil followed by low-dose misoprostol followed by placement of cervical perales balloon for further mechanical ripening. Labor was augmented with pitocin per protocol. Patient had an uncomplicated second stage with delivery of LBFI 9/9, weight 4lbs 4oz. Pt incurred significant vaginal lacerations that necessitated operative repair due to limited visualization and high blood loss in delivery room (see operative dictation). Total EBL of approx [id number]. Pt received 1u pRBC with appropriate response and was asymptomatic from standpoint of acute blood loss anemia, h/h at discharge 8.8 and pt to be discharged home with PO iron supplementation. Patient had appropriate /postoperative course and was discharged home on PPD2 meeting all discharge milestones. Oral anaglesia continued at time of discharge with strict pain/bleeding precautions reviewed. Peripartum Data Delivery Method: Natural Vaginal Laceration Description: Vaginal - 2nd Degree (multiple, see operative documentation) Procedures: operative repair of complex obstetrical laceration complications: transfusion and other (operative repair of complex obstetrical laceration) 1: Gender: Female Disposition of : home Discharge Diagnosis (1) Delivery outcome of liveborn infant: Status: Acute (2) Hemorrhage after vaginal delivery: Status: Acute (3) growth restriction antepartum: Status: Acute (4) 37 weeks gestation of : Status: Acute Status at Discharge Cognitive/behavioral status at discharge: oriented Functional status at discharge: independent ambulation Overall status at discharge: patient is back to baseline Time Spent with Patient Time attestation: Total time spent providing and/or coordinating discharge services: Time spent: Less than 30 minutes Objective Labs 09/06/24 09:38 Labs: Laboratory Results - last 24 hr 09/06/24 09:38 WBC 23.3 H RBC 2.73 L Hgb 8.8 L Hct 26.0 L MCV 95.4 MCH 32.1 MCHC 33.7 RDW 14.0 Plt Count 198 Neut % (Auto) 86.6 H Lymph % (Auto) 8.7 L [place] % (Auto) 3.2 Eos % (Auto) 1.2 L Baso % (Auto) 0.3 Neut # (Auto) 14055 H Lymph # (Auto) 2000 [place] # (Auto) 700 Eos # (Auto) 300 Baso # (Auto) 100 Exam Vital Signs (past 8 hours): Oxygen Delivery Method Room Air Oxygen Flow Rate 99 maternal VSS/afebrile, reviewed in OBIX and wnl Const General: cooperative, comfortable and well developed Nutritional Appearance: average body habitus Orientation: alert, awake and oriented x3 Limitations: mental status not altered Resp Effort & Inspection: normal respiratory effort and able to speak in complete sentences Cardio Rate: regular rate Pulses: normal peripheral pulses GI Inspection: normal to inspection Palpation: soft Other: fundus firm << umb, non-tender Other: deferred per shared decision making with patient lochia minimal per RN voiding independently without difficulty Skin General: no rashes or lesions noted Neuro General: patient alert, patient awake and patient oriented x3 Extrem General: normal to inspection Psych Mental Status: mental status grossly normal Judgment: judgment good Discharge Plan Discharge Plan Patient Disposition: Home Provider Discharge Comment: Take ibuprofen 800mg every 8hrs and acetaminophen 650mg every 6hrs for pain. Use oxycodone 5mg every 4hrs as needed for breakthrough pain. Take colace and/or miralax to keep your stools soft and avoid straining. Avoid placing anything in the vagina for 6 weeks. Discharge orders & Medications Prescriptions: New acetaminophen 325 mg Tablet 650 mg PO Q6HR PRN (Reason: Pain, Mild (1-3)) Qty: 30 0RF Dermoplast (with menthol) 20-0.5 % Aerosol 1 spray topical Q1HR PRN (Reason: perineal pain) Qty: 56 2RF docusate sodium 100 mg Capsule 100 mg PO DAILY Qty: 30 0RF ibuprofen 600 mg Tablet 600 mg PO Q6HR PRN (Reason: Pain, Mild (1-3)) Qty: 30 0RF Purelan Cream 1 applic topical PRN PRN (Reason: Tenderness) Qty: 7 3RF [employer] Sheila 12.5-50 % Pads, Medicated 1 pad topical Q30M PRN (Reason: Itching) Qty: 40 1RF oxycodone 5 mg capsule 5 mg PO Q8H PRN (Reason: pain) Qty: 10 0RF ferrous sulfate [Iron (ferrous sulfate)] 325 mg (65 mg iron) tablet 325 mg PO BID Qty: 60 0RF Rx Instructions: take medication with orange or cranberry juice to increase absorption Continued PNV cmb#95-ferrous fumarate-FA 28 mg iron- 800 mcg tablet 1 tab PO DAILY Qty: 90 3RF No Action (DME) breast pump Device See Rx Instructions .ROUTE .MEDSUPPLY Qty: 1 0RF Rx Instructions: As directed Follow up/Referrals: Karime Peralta MD [Physician] - 10/19/24 10:30 am (Please follow up with Dr. Peralta for your 6 week follow up on Saturday October 19, 2024 at 10:30. Please arrive at 10:15 am!) Hortencia Bourgeois DO [Physician] - (You should have a 2 week telehealth and a 6 week in person appointment booked for follow-up.) Diet/Activity/Treatments Diet: Diet as Tolerated Activity: As tolerated. Skin/Wound/Dressing Care Report to your healthcare provider any signs of infection, such as:: chills, fever, increased pain and unusual drainage Visit Report/Discharge Packet Instructions: DI for Vulvo-vaginal Tears, DI for Labor and Delivery, Vaginal , DI for Prescription Opioid Use Stand Alone Forms: Patient Portal/API, Stroke Signs & Symptoms Discharge Data Primary Care Provider: Ck Poe
[2024-09-07] MEDS: OXYCODONE IR 5 MG TABLET PO ×3 (07:57→16:33)
[2024-09-07] MEDS: WITCH HAZEL/GLYCERIN PADS 1 EACH TOP (11:36)
[2024-09-07] MEDS: DERMOPLAST SPRAY 20% 60 ML 1 SPRAY TOP (13:40)
[2024-09-07] MEDS: DOCUSATE 100 MG CAPSULE PO (16:33)
[2024-09-07 17:30] VITALS: BP 104/66; PULSE 101; RESP 16; TEMP 36.5
== END 2024-09-07 17:40 | disposition home or self-care (01) | DRG 806 ==
PROVIDERS: Nurse Anesthetist, Certified Registered; Admitting Provider Student in an Organized Health Care Education/Training Program; PCP Nurse Practitioner Family; Referring Provider Student in an Organized Health Care Education/Training Program; Visit Provider Student in an Organized Health Care Education/Training Program
PROC: 10E0XZZ Delivery of Products of Conception, External Approach (ICD-10-PCS; CPT 58120; principal; 2024-09-05 04:15)
DX: O36.5930 Maternal care for other known or suspected poor fetal growth, third trimester, not applicable or unspecified (principal); D62 Acute posthemorrhagic anemia; Z37.0 Single live birth; O90.81 Anemia of the puerperium; Z3A.37 37 weeks gestation of pregnancy
CPT/HCPCS: 36415; 36430; 59050; 59200; 85025; 85610; 85730; 86850; 86900; 86901; P9016; G0379; J2590; J2704